=== PATIENT | male | born 1960 | race African-American/Black ===

== ENCOUNTER 2016-11-02 12:34 | Emergency (ER) | payer MEDICARE, MEDICAID ==
[~2016-11-02] VITALS: Ht 170.2 cm; Wt 92.0 kg
[~2016-11-02 12:34] MED LIST: ALBU6.7H INH; AMI2 PO; ATOR-2 PO; CARV12.545 PO; FURO-151 PO; GEMF600T3 PO; POTA-9 PO; SPIR25TA4 PO; WARF7.5T22 PO
[2016-11-02] MEDS ORDERED: BACITRACIN ZINC OINT UDPKT TOP ONE (14:45)
[2016-11-02] MEDS ORDERED: LIDOCAINE HCL 1%/EPI 1:200,000 30 ML VIAL ONE (14:59)
[2016-11-02] MEDS ORDERED: LIDOCAINE HCL/EPINEPHRINE 1%-EPI 1:100,000 50 ML VIAL INFIL ONE (15:00)
[2016-11-02 15:35] LABS: BASOPHILS % 0.7 % (0.0-2.0); EOSINOPHILS % 0.8 % (0.0-5.0); HEMATOCRIT. 42.7 % (42.0-52.0); HEMOGLOBIN. 14.2 g/dL (14.0-18.0); LYMPHOCYTES % 29.6 % (20.0-50.0); MEAN CORPUSCULAR HEMOGLOBIN 30.1 pg (28.0-32.0); MEAN CORPUSCULAR VOLUME 90.4 fL (80.0-94.0); MEAN PLATELET VOLUME 9.6 fl (7.4-10.4); MONOCYTES % 11.1 % (2.0-8.0); NEUTROPHILS % 57.8 % (40.0-76.0); PLATELET 170 x1000/uL (130-400); RED BLOOD CELL COUNT 4.73 mill/uL (4.7-6.1); RED CELL DISTRIBUTION WIDTH 14.1 % (11.6-14.6)
[2016-11-02 15:36] LABS: CHLORIDE 106 mEq/L (98-107)
[2016-11-02 15:41] LABS: CARBON DIOXIDE 27 mEq/L (21-32); INR 1.4; PROTHROMBIN TIME 15.1 sec (9.4-11.6)
[2016-11-02] MEDS ORDERED: KETOROLAC 60MG/2ML VIAL IM ONE (16:00)
[2016-11-02 16:02] VITALS: BP 107/73
== END 2016-11-02 16:11 | disposition home or self-care (01) ==
LOC: ER 12:34
DX: S61.411A Laceration without foreign body of right hand, initial encounter (principal); E78.00 Pure hypercholesterolemia, unspecified; I50.9 Heart failure, unspecified; Z95.1 Presence of aortocoronary bypass graft; Z79.01 Long term (current) use of anticoagulants; W26.8XXA Contact with other sharp object(s), not elsewhere classified, initial encounter; Y93.89 Activity, other specified; Y92.017 Garden or yard in single-family (private) house as the place of occurrence of the external cause
CPT/HCPCS: 12002; 36415; 80053; 85025; 85610; 96372; 99284; J1885; J3490; A4565

== ENCOUNTER 2017-03-01 20:30 | Inpatient (IN) | payer MEDICARE, MEDICAID ==
[~2017-03-01] VITALS: Ht 175.3 cm; Wt 109.8 kg
[~2017-03-01 20:30] MED LIST changes: +ASPI-1159 PO; +CARI350T PO; +EVOL420W SQ; +HYDR-523 PO; +SACU1TAB7 PO
[2017-03-01] MEDS ORDERED: IPRATROPIUM BROMIDE (0.02%) 0.5MG/2.5ML NEB HHN STA (22:24)
[2017-03-01] MEDS ORDERED: ALBUTEROL (0.083%) 2.5MG/3ML NEB HHN STA (22:24)
[2017-03-01] MEDS ORDERED: PREDNISONE 20MG TABLET PO STA (22:24)
[2017-03-01] MEDS ORDERED: AZITHROMYCIN 500 MG in DEXT 5% WATER 250 ML IV SCH (22:45)
[2017-03-01] MEDS ORDERED: CEFTRIAXONE 2 G PREMIX 50 ML IV ONE (22:45)
[2017-03-01 23:03] LABS: BASOPHILS % 0.8 % (0.0-2.0); EOSINOPHILS % 1.9 % (0.0-5.0); HEMATOCRIT. 38.7 % (42.0-52.0); HEMOGLOBIN. 13.1 g/dL (14.0-18.0); LYMPHOCYTES % 40.5 % (20.0-50.0); MEAN CORPUSCULAR HEMOGLOBIN 30.5 pg (28.0-32.0); MEAN CORPUSCULAR VOLUME 89.7 fL (80.0-94.0); MEAN PLATELET VOLUME 8.7 fl (7.4-10.4); MONOCYTES % 12.2 % (2.0-8.0); NEUTROPHILS % 44.6 % (40.0-76.0); PLATELET 172 x1000/uL (130-400); RED BLOOD CELL COUNT 4.31 mill/uL (4.7-6.1); RED CELL DISTRIBUTION WIDTH 13.7 % (11.6-14.6)
[2017-03-01 23:07] LABS: CHLORIDE 106 mEq/L (98-107)
[2017-03-01 23:11] LABS: INR 1.1; PROTHROMBIN TIME 11.7 sec (9.4-11.6)
[2017-03-01 23:13] LABS: CARBON DIOXIDE 28 mEq/L (21-32)
[2017-03-02] VITALS (8 sets, daily range): BP systolic 106–135; BP diastolic 46–88
[2017-03-02] MEDS ORDERED: CLOP75TA33 PO (02:20)
[2017-03-02] MEDS ORDERED: ATOR20TA65 PO (02:20)
[2017-03-02] MEDS ORDERED: ACETAMINOPHEN 325MG TABLET PO PRN (03:45)
[2017-03-02] MEDS ORDERED: TEMAZEPAM 15MG CAPSULE PO PRN (03:45)
[2017-03-02] MEDS ORDERED: IPRATROPIUM/ALBUTEROL 0.5-3(2.5)MG/3ML NEB HHN PRN (03:45)
[2017-03-02] MEDS ORDERED: CLONIDINE 0.1MG TABLET PO PRN (03:45)
[2017-03-02] MEDS ORDERED: LEVOFLOXACIN 500MG PREMIX 100 ML IV SCH (06:00)
[2017-03-02 07:12] LABS: PROSTRATE SPECIFIC AG TOTAL 0.44 ng/mL (0.0-4.0); TRIOIODOTHYRONINE TOTAL 0.73 ng/ml (0.60-1.81)
[2017-03-02 07:17] LABS: BASOPHILS % 0.4 % (0.0-2.0); EOSINOPHILS % 0.2 % (0.0-5.0); HEMATOCRIT. 39.2 % (42.0-52.0); LYMPHOCYTES % 16.4 % (20.0-50.0); MEAN CORPUSCULAR VOLUME 90.2 fL (80.0-94.0); MEAN PLATELET VOLUME 9.8 fl (7.4-10.4); MONOCYTES % 2.8 % (2.0-8.0); NEUTROPHILS % 80.2 % (40.0-76.0); PLATELET 176 x1000/uL (130-400); RED BLOOD CELL COUNT 4.35 mill/uL (4.7-6.1); RED CELL DISTRIBUTION WIDTH 13.9 % (11.6-14.6)
[2017-03-02] MEDS: IPRATROPIUM/ALBUTEROL 0.5-3(2.5)MG/3ML NEB HHN SCH ×2 (07:54→15:33)
[2017-03-02 08:35] LABS: CLARITY URINE CLEAR (CLEAR); COLOR URINE YELLOW (YELLOW); KETONES URINE NEGATIVE (NEGATIVE); LEUKOCYTE ESTERASE URINE NEGATIVE (NEGATIVE); NITRITE URINE NEGATIVE (NEGATIVE); OCCULT BLOOD URINE NEGATIVE (NEGATIVE); PH URINE 7.5 (4.5-8.0); PROTEIN URINE NEGATIVE (NEGATIVE); SPECIFIC GRAVITY URINE 1.023 (1.005-1.030); UROBILINOGEN URINE 0.2 E.U./dL (0.2-1.0)
[2017-03-02 08:45] LABS: CARBON DIOXIDE 24 mEq/L (21-32); CHLORIDE 106 mEq/L (98-107); CREATINE KINASE 125 IU/L (39-308); CREATINE KINASE MB FRACTION 1.5 ng/mL (0.5-3.6); HDL CHOLESTEROL 35 mg/dL (40-59); LDL CHOLESTEROL 176 mg/dL (5-100); TROPONIN I < 0.02 ng/mL (0.00-0.04)
[2017-03-02] MEDS ORDERED: [UNRECOGNIZED DRUG - OTHER] PO SCH (09:00)
[2017-03-02] MEDS ORDERED: VALSARTAN PO SCH (09:00)
[2017-03-02] MEDS ORDERED: ASPIRIN 81MG EC TABLET PO SCH (09:00)
[2017-03-02] MEDS ORDERED: SACUBITRIL PO SCH (09:00)
[2017-03-02] MEDS: LEVOFLOXACIN 500MG PREMIX 100 ML IV SCH (10:06)
[2017-03-02] MEDS: CARISOPRODOL 350 MG TABLET PO SCH (10:07)
[2017-03-02] MEDS: FUROSEMIDE 40MG TABLET PO SCH ×2 (10:07→21:12)
[2017-03-02] MEDS: DOCUSATE SODIUM 100MG CAPSULE PO SCH ×2 (10:07→16:46)
[2017-03-02] MEDS: PROMETHAZINE/DEXTROMETHORPHAN 6.25-15MG/5ML BOTTLE 120ML PO PRN ×2 (12:33→21:16)
[2017-03-02 13:55] LABS: BG BASE EXCESS 0.4 mmol/L (-2.0-2.0); BG CARBOXYHEMOGLOBIN 0.4 % (0.5-1.5); BG DEOXYHEMOGLOBIN 3.7 % (0.0-5.0); BG HCO3 ACT 24.9 mmol/L (22.0-26.0); BG METHEMOGLOBIN 0.3 % (0.0-1.5); BG OXYGEN SATURATION 96.3 % (92.0-98.5); BG OXYHEMOGLOBIN 95.6 % (94.0-97.0); BG PCO2 39.5 mmHg (35.0-45.0); BG PH 7.417 (7.350-7.450); BG PO2 81.5 mmHg (75.0-100.0); BG SAMPLE SITE RIGHT RADIAL; BG TOTAL HEMOGLOBIN 13.7 g/dL (12.0-18.0); BG VENT MODE ROOM AIR
[2017-03-02] MEDS: ATORVASTATIN CALCIUM 40MG TABLET PO SCH (21:12)
[2017-03-02 22:03] LABS: *AMPHETAMINES SCREEN URINE NEGATIVE (NEGATIVE); *BENZODIAZEPINES SCREEN URINE NEGATIVE (NEGATIVE); *COCAINE SCREEN URINE NEGATIVE (NEGATIVE); CANNABINOID URINE SCREEN PRESUMTIVE POSITIVE (NEGATIVE); METHADONE URINE SCREEN NEGATIVE (NEGATIVE); OPIATES URINE SCREEN PRESUMTIVE POSITIVE (NEGATIVE); PHENCYCLIDINE URINE SCREEN NEGATIVE (NEGATIVE)
[2017-03-02 22:04] LABS: *BARBITURATES SCREEN URINE NEGATIVE (NEGATIVE)
[2017-03-03] MEDS ORDERED: AZITHROMYCIN 500 MG in DEXT 5% WATER 250 ML IV SCH ×2
[2017-03-03] MEDS ORDERED: CEFTRIAXONE 1,000 MG in SODIUM CHLORIDE 0.9% 50 ML IV SCH ×2
[2017-03-03] MEDS: IPRATROPIUM/ALBUTEROL 0.5-3(2.5)MG/3ML NEB HHN SCH ×3 (00:08→16:28)
[2017-03-03 04:00] VITALS: BP 106/81
[2017-03-03 06:24] LABS: BASOPHILS % 0.5 % (0.0-2.0); EOSINOPHILS % 0.8 % (0.0-5.0); HEMATOCRIT. 38.7 % (42.0-52.0); HEMOGLOBIN. 12.8 g/dL (14.0-18.0); LYMPHOCYTES % 26.9 % (20.0-50.0); MEAN CORPUSCULAR VOLUME 90.3 fL (80.0-94.0); MEAN PLATELET VOLUME 9.6 fl (7.4-10.4); NEUTROPHILS % 60.8 % (40.0-76.0); PLATELET 179 x1000/uL (130-400); RED BLOOD CELL COUNT 4.28 mill/uL (4.7-6.1); RED CELL DISTRIBUTION WIDTH 14.1 % (11.6-14.6)
[2017-03-03 08:00] VITALS: BP 116/75
[2017-03-03 09:12] LABS: CARBON DIOXIDE 26 mEq/L (21-32); CHLORIDE 103 mEq/L (98-107); TROPONIN I < 0.02 ng/mL (0.00-0.04)
[2017-03-03] MEDS: CARISOPRODOL 350 MG TABLET PO SCH (10:56)
[2017-03-03] MEDS: PROMETHAZINE/DEXTROMETHORPHAN 6.25-15MG/5ML BOTTLE 120ML PO PRN ×2 (10:56→20:38)
[2017-03-03] MEDS: FUROSEMIDE 40MG TABLET PO SCH ×2 (10:56→18:14)
[2017-03-03] MEDS: DOCUSATE SODIUM 100MG CAPSULE PO SCH ×2 (10:56→16:49)
[2017-03-03] MEDS: LEVOFLOXACIN 500MG PREMIX 100 ML IV SCH (10:57)
[2017-03-03 12:00] VITALS: BP 132/83
[2017-03-03 16:00] VITALS: BP 111/74
[2017-03-03 20:00] VITALS: BP 104/68
[2017-03-03] MEDS: ATORVASTATIN CALCIUM 40MG TABLET PO SCH (20:37)
[2017-03-04] VITALS: BP 132/78
[2017-03-04] MEDS ORDERED: CEFTRIAXONE 1 G PREMIX 50 ML IV SCH
[2017-03-04] MEDS: IPRATROPIUM/ALBUTEROL 0.5-3(2.5)MG/3ML NEB HHN SCH (00:03)
[2017-03-04 04:00] VITALS: BP 112/65
[2017-03-04 06:10] LABS: CARBON DIOXIDE 30 mEq/L (21-32); CHLORIDE 103 mEq/L (98-107)
[2017-03-04 06:14] LABS: BASOPHILS % 0.6 % (0.0-2.0); EOSINOPHILS % 2.2 % (0.0-5.0); HEMATOCRIT. 39.7 % (42.0-52.0); HEMOGLOBIN. 13.2 g/dL (14.0-18.0); LYMPHOCYTES % 30.9 % (20.0-50.0); MEAN CORPUSCULAR HEMOGLOBIN 29.9 pg (28.0-32.0); MEAN CORPUSCULAR VOLUME 89.9 fL (80.0-94.0); MEAN PLATELET VOLUME 9.4 fl (7.4-10.4); MONOCYTES % 12.6 % (2.0-8.0); NEUTROPHILS % 53.7 % (40.0-76.0); PLATELET 193 x1000/uL (130-400); RED BLOOD CELL COUNT 4.42 mill/uL (4.7-6.1); RED CELL DISTRIBUTION WIDTH 14.2 % (11.6-14.6)
[2017-03-04] MEDS: FUROSEMIDE 40MG TABLET PO SCH (06:52)
[2017-03-04 08:00] VITALS: BP 123/93
[2017-03-04] MEDS: DOCUSATE SODIUM 100MG CAPSULE PO SCH (08:42)
[2017-03-04] MEDS: CARISOPRODOL 350 MG TABLET PO SCH (08:43)
[2017-03-04] MEDS: LEVOFLOXACIN 500MG PREMIX 100 ML IV SCH (08:43)
[2017-03-04] MEDS: PROMETHAZINE/DEXTROMETHORPHAN 6.25-15MG/5ML BOTTLE 120ML PO PRN (10:33)
[2017-03-04 12:00] VITALS: BP 121/85
[2017-03-04 13:11] VITALS: BP 121/85
== END 2017-03-04 14:04 | disposition home or self-care (01) | DRG 291 ==
LOC: ER 22:41 → OBSVTOIN 23:53 → 5WST 23:53 → INTOOBSV 23:53 → ENRESERV 03-02 00:01
PROVIDERS: ADMIT Internal Medicine Pulmonary Disease; ATTEND Internal Medicine Pulmonary Disease
DX: I11.0 Hypertensive heart disease with heart failure (principal); J18.9 Pneumonia, unspecified organism; J44.0 Chronic obstructive pulmonary disease with (acute) lower respiratory infection; R04.2 Hemoptysis; Z95.1 Presence of aortocoronary bypass graft; J44.1 Chronic obstructive pulmonary disease with (acute) exacerbation; I48.91 Unspecified atrial fibrillation; I50.9 Heart failure, unspecified; Z87.891 Personal history of nicotine dependence; E78.5 Hyperlipidemia, unspecified; I25.10 Atherosclerotic heart disease of native coronary artery without angina pectoris; I44.7 Left bundle-branch block, unspecified; J20.8 Acute bronchitis due to other specified organisms; I25.5 Ischemic cardiomyopathy; Z79.82 Long term (current) use of aspirin; I25.2 Old myocardial infarction; Z82.49 Family history of ischemic heart disease and other diseases of the circulatory system; Z95.5 Presence of coronary angioplasty implant and graft; Z95.810 Presence of automatic (implantable) cardiac defibrillator; Z79.899 Other long term (current) drug therapy; T45.525A Adverse effect of antithrombotic drugs, initial encounter; T39.015A Adverse effect of aspirin, initial encounter; Y92.9 Unspecified place or not applicable
CPT/HCPCS: 36415; 36600; 71045; 71046; 80048; 80053; 80061; 80076; 80305; 81003; 82375; 82550; 82553; 82805; 83605; 83880; 84153; 84443; 84480; 84484; 85025; 85610; 86850; 86900; 87040; 87070; 87086; 93005; 94640; 99285; G0378; J0456; J0696; J1956; J7040; J7050; J7060; J7512; J7611; J7620

== ENCOUNTER 2017-11-01 06:12 | Inpatient (IN) | payer MEDICARE, MEDICAID ==
[~2017-11-01] VITALS: Ht 175.3 cm; Wt 116.8 kg
[~2017-11-01 06:12] MED LIST changes: -ASPI-1159 PO; -ATOR-2 PO; +ATOR20TA65 PO; -CARI350T PO; -CARV12.545 PO; -GEMF600T3 PO; +GEMF600T4 PO; -HYDR-523 PO; -POTA-9 PO; +S350 PO; -SPIR25TA4 PO; -WARF7.5T22 PO
[2017-11-01] MEDS ORDERED: BENZ-16 PO (08:39)
[2017-11-01] MEDS ORDERED: ALBU18HF2 IH (08:39)
[2017-11-01] MEDS ORDERED: COR12 PO (08:39)
[2017-11-01] MEDS ORDERED: CLOP75TA16 PO (08:39)
[2017-11-01] MEDS ORDERED: ASPI-1159 PO (08:39)
[2017-11-01 08:53] LABS: HEMATOCRIT. 41.4 % (42.0-52.0); MEAN CORPUSCULAR HEMOGLOBIN 30.6 pg (28.0-32.0); MEAN CORPUSCULAR VOLUME 90.7 fL (80.0-94.0); MEAN PLATELET VOLUME 9.9 fl (7.4-10.4); PLATELET 162 x1000/uL (130-400); RED BLOOD CELL COUNT 4.57 mill/uL (4.7-6.1)
[2017-11-01 09:00] LABS: CHLORIDE 102 mEq/L (98-107)
[2017-11-01 09:09] LABS: INR 1.1; PARTIAL THROMBOPLASTIN TIME 29.5 sec (23.4-31.0); PROTHROMBIN TIME 10.8 sec (9.1-11.1)
[2017-11-01] MEDS ORDERED: GENTAMICIN SULF 40MG/ML 2ML VIAL ONE (11:09)
[2017-11-01] MEDS ORDERED: GENTAMICIN/NS IRRIGATION 500 ML IR ONE (11:09)
[2017-11-01] MEDS ORDERED: CEFAZOLIN 1000MG PREMIX 100 ML IV ONE (11:09)
[2017-11-01] MEDS ORDERED: IOHEXOL-300 100 ML BOTTLE ONE (11:09)
[2017-11-01 11:40] LABS: PLATELET ESTIMATE NORMAL
[2017-11-01] MEDS ORDERED: LIDOCAINE HCL 1% 10 MG/ML 10ML VIAL ONE ×2 (12:29→12:39)
[2017-11-01 14:37] LABS: HEPATITIS B SURFACE ANTIGEN NEGATIVE
[2017-11-01] MEDS ORDERED: ETOMIDATE 2MG/ML 10ML VIAL IV ONE (15:15)
[2017-11-01] MEDS ORDERED: ALBUTEROL 6.7GM HFA INHALER INH PRN (15:30)
[2017-11-01] MEDS: FENTANYL CITRATE/PF 50MCG/ML 2ML VIAL IV PRN ×2 (16:48→16:59)
[2017-11-01] MEDS: ONDANSETRON HCL 4MG/2ML INJ IV PRN ×2 (16:48→18:20)
[2017-11-01] MEDS ORDERED: ATORVASTATIN CALCIUM 20MG TABLET PO SCH (17:00)
[2017-11-01] MEDS ORDERED: ALBUTEROL (0.083%) 2.5MG/3ML NEB HHN PRN (17:00)
[2017-11-01] MEDS ORDERED: ALBUTEROL 6.7GM HFA INHALER INH SCH (17:00)
[2017-11-01 17:58] VITALS: BP 127/77
[2017-11-01 18:08] VITALS: BP 127/77
[2017-11-01] MEDS ORDERED: PNEUMOCOCCAL 23-VAL P-SAC VAC 0.5 ML IM ONE (19:30)
[2017-11-01] MEDS: HYDROCODONE/ACETAMINOPHEN 5/325MG TABLET PO PRN (19:38)
[2017-11-01 20:00] VITALS: BP 112/84
[2017-11-01] MEDS: ATORVASTATIN CALCIUM 20MG TABLET PO SCH (21:01)
[2017-11-01] MEDS: FUROSEMIDE 40MG TABLET PO SCH (21:01)
[2017-11-01 22:00] VITALS: BP 134/78
[2017-11-02] VITALS (15 sets, daily range): BP systolic 94–121; BP diastolic 55–74
[2017-11-02] MEDS: ALBUTEROL (0.083%) 2.5MG/3ML NEB HHN SCH ×4 (02:36→20:00)
[2017-11-02] MEDS: HYDROCODONE/ACETAMINOPHEN 5/325MG TABLET PO PRN ×2 (04:04→18:58)
[2017-11-02] MEDS: FUROSEMIDE 40MG TABLET PO SCH ×2 (06:38→17:00)
[2017-11-02 06:58] LABS: BASOPHILS % 0.4 % (0.0-2.0); EOSINOPHILS % 0.9 % (0.0-5.0); HEMATOCRIT. 41.4 % (42.0-52.0); HEMOGLOBIN. 13.7 g/dL (14.0-18.0); LYMPHOCYTES % 16.9 % (20.0-50.0); MEAN CORPUSCULAR HEMOGLOBIN 30.4 pg (28.0-32.0); MEAN CORPUSCULAR VOLUME 91.6 fL (80.0-94.0); MEAN PLATELET VOLUME 10.1 fl (7.4-10.4); MONOCYTES % 12.5 % (2.0-8.0); NEUTROPHILS % 69.3 % (40.0-76.0); PLATELET 157 x1000/uL (130-400); RED BLOOD CELL COUNT 4.52 mill/uL (4.7-6.1); RED CELL DISTRIBUTION WIDTH 14.2 % (11.6-14.6)
[2017-11-02 07:13] LABS: CHLORIDE 100 mEq/L (98-107)
[2017-11-02] MEDS: ASPIRIN 81MG TABLET PO SCH (09:41)
[2017-11-02] MEDS: CARISOPRODOL 350 MG TABLET PO SCH (09:42)
[2017-11-02] MEDS: CARVEDILOL 12.5MG TABLET PO SCH (09:43)
[2017-11-02] MEDS: CLOPIDOGREL 75MG TABLET PO SCH (09:44)
[2017-11-02] MEDS: AMIODARONE HCL 200 MG TABLET PO SCH (09:45)
[2017-11-02] MEDS: ONDANSETRON HCL 4MG/2ML INJ IV PRN (18:55)
[2017-11-02] MEDS: ATORVASTATIN CALCIUM 20MG TABLET PO SCH (20:45)
[2017-11-03] VITALS (15 sets, daily range): BP systolic 95–124; BP diastolic 49–90
[2017-11-03] MEDS: ALBUTEROL (0.083%) 2.5MG/3ML NEB HHN SCH ×3 (01:28→20:52)
[2017-11-03] MEDS: ONDANSETRON HCL 4MG/2ML INJ IV PRN (08:30)
[2017-11-03] MEDS: HYDROCODONE/ACETAMINOPHEN 5/325MG TABLET PO PRN ×2 (08:32→20:18)
[2017-11-03] MEDS: AMIODARONE HCL 200 MG TABLET PO SCH (08:33)
[2017-11-03] MEDS: CLOPIDOGREL 75MG TABLET PO SCH (08:33)
[2017-11-03] MEDS: CARVEDILOL 12.5MG TABLET PO SCH (08:33)
[2017-11-03] MEDS: ASPIRIN 81MG TABLET PO SCH (08:33)
[2017-11-03] MEDS: CARISOPRODOL 350 MG TABLET PO SCH (08:33)
[2017-11-03] MEDS: FUROSEMIDE 40MG TABLET PO SCH ×2 (08:33→17:26)
[2017-11-03] MEDS: ATORVASTATIN CALCIUM 20MG TABLET PO SCH (20:19)
[2017-11-03] MEDS ORDERED: ACETAMINOPHEN 325MG TABLET PO PRN (21:00)
[2017-11-03] MEDS: CEPHALEXIN 250MG CAPSULE PO SCH (21:30)
[2017-11-03 21:51] LABS: BASOPHILS % 0.5 % (0.0-2.0); EOSINOPHILS % 0.6 % (0.0-5.0); HEMATOCRIT. 40.1 % (42.0-52.0); HEMOGLOBIN. 13.3 g/dL (14.0-18.0); LYMPHOCYTES % 14.8 % (20.0-50.0); MEAN CORPUSCULAR HEMOGLOBIN 30.3 pg (28.0-32.0); MEAN CORPUSCULAR VOLUME 91.3 fL (80.0-94.0); MEAN PLATELET VOLUME 9.8 fl (7.4-10.4); MONOCYTES % 13.5 % (2.0-8.0); NEUTROPHILS % 70.6 % (40.0-76.0); PLATELET 142 x1000/uL (130-400); RED BLOOD CELL COUNT 4.39 mill/uL (4.7-6.1); RED CELL DISTRIBUTION WIDTH 13.7 % (11.6-14.6)
[2017-11-04] VITALS (9 sets, daily range): BP systolic 95–126; BP diastolic 53–77
[2017-11-04] MEDS: ALBUTEROL (0.083%) 2.5MG/3ML NEB HHN SCH ×3 (02:36→13:53)
[2017-11-04] MEDS: FUROSEMIDE 40MG TABLET PO SCH (06:45)
[2017-11-04] MEDS: CEPHALEXIN 250MG CAPSULE PO SCH ×2 (06:46)
[2017-11-04] MEDS: CARISOPRODOL 350 MG TABLET PO SCH (07:41)
[2017-11-04] MEDS: ASPIRIN 81MG TABLET PO SCH (07:42)
[2017-11-04] MEDS: CLOPIDOGREL 75MG TABLET PO SCH (07:42)
[2017-11-04] MEDS: AMIODARONE HCL 200 MG TABLET PO SCH (07:42)
[2017-11-04] MEDS: CARVEDILOL 12.5MG TABLET PO SCH (07:45)
[2017-11-04] MEDS: HYDROCODONE/ACETAMINOPHEN 5/325MG TABLET PO PRN (10:15)
== END 2017-11-04 16:10 | disposition home or self-care (01) | DRG 223 ==
LOC: CCL 06:12 → 3WST 06:13
PROVIDERS: ADMIT Internal Medicine Clinical Cardiac Electrophysiology; ATTEND Internal Medicine Clinical Cardiac Electrophysiology
PROC: 0JH609Z Insertion of Cardiac Resynchronization Defibrillator Pulse Generator into Chest Subcutaneous Tissue and Fascia, Open Approach (ICD-10-PCS; 2017-11-01)
PROC: 02HL3KZ Insertion of Defibrillator Lead into Left Ventricle, Percutaneous Approach (ICD-10-PCS; 2017-11-01)
PROC: 4A023N6 Measurement of Cardiac Sampling and Pressure, Right Heart, Percutaneous Approach (ICD-10-PCS; 2017-11-01)
PROC: 02H43KZ Insertion of Defibrillator Lead into Coronary Vein, Percutaneous Approach (ICD-10-PCS; 2017-11-01)
PROC: B5171ZZ Fluoroscopy of Left Subclavian Vein using Low Osmolar Contrast (ICD-10-PCS; 2017-11-01)
PROC: 0JPT0PZ Removal of Cardiac Rhythm Related Device from Trunk Subcutaneous Tissue and Fascia, Open Approach (ICD-10-PCS; principal; 2017-11-01 15:00)
DX: I11.0 Hypertensive heart disease with heart failure (principal); I25.5 Ischemic cardiomyopathy; I50.23 Acute on chronic systolic (congestive) heart failure; I25.10 Atherosclerotic heart disease of native coronary artery without angina pectoris; E78.5 Hyperlipidemia, unspecified; J44.9 Chronic obstructive pulmonary disease, unspecified; E66.9 Obesity, unspecified; I34.0 Nonrheumatic mitral (valve) insufficiency; I25.2 Old myocardial infarction; Z95.1 Presence of aortocoronary bypass graft; Z95.5 Presence of coronary angioplasty implant and graft; Z79.899 Other long term (current) drug therapy; Z68.38 Body mass index [BMI] 38.0-38.9, adult
CPT/HCPCS: 33225; 33264; 36415; 71045; 75820; 80048; 85025; 85610; 85730; 93005; 93451; 93641; 94640; A4565; C1758; C1769; C1882; C1887; C1893; C1900; J0690; J1580; J1644; J2405; J3010; J3490; J7040; J7611; Q9967

== ENCOUNTER 2018-01-28 09:05 | Inpatient (IN) | payer MEDICARE, MEDICAID ==
[~2018-01-28] VITALS: Ht 205.7 cm; Wt 117.9 kg
[~2018-01-28 09:05] MED LIST changes: +ALBU18HF2 IH; +ASPI-1159 PO; +CLOP75TA16 PO; +COR12 PO; -EVOL420W SQ; -GEMF600T4 PO; -SACU1TAB7 PO
[2018-01-28] MEDS ORDERED: ALBUTEROL (0.083%) 2.5MG/3ML NEB HHN STA (09:22)
[2018-01-28] MEDS ORDERED: FUROSEMIDE 40MG/4ML VIAL IV ONE (09:30)
[2018-01-28] MEDS ORDERED: ASPIRIN 81MG TABLET PO ONE (09:30)
[2018-01-28 09:41] LABS: HEMATOCRIT. 40.6 % (42.0-52.0); HEMOGLOBIN. 13.6 g/dL (14.0-18.0); MEAN CORPUSCULAR HEMOGLOBIN 29.8 pg (28.0-32.0); MEAN CORPUSCULAR VOLUME 88.9 fL (80.0-94.0); PLATELET 154 x1000/uL (130-400); RED BLOOD CELL COUNT 4.57 mill/uL (4.7-6.1); RED CELL DISTRIBUTION WIDTH 14.1 % (11.6-14.6)
[2018-01-28 09:46] LABS: CHLORIDE 100 mEq/L (98-107)
[2018-01-28 09:48] LABS: INR 1.1; PARTIAL THROMBOPLASTIN TIME 29.2 sec (23.4-31.0); PROTHROMBIN TIME 11.4 sec (9.1-11.1)
[2018-01-28 10:04] LABS: PLATELET ESTIMATE NORMAL
[2018-01-28 14:20] VITALS: BP 112/65
[2018-01-28] MEDS ORDERED: BENZONATATE 100MG CAPSULE PO PRN (14:45)
[2018-01-28] MEDS ORDERED: PANTOPRAZOLE 40MG DR TABLET PO STA (15:05)
[2018-01-28] MEDS ORDERED: FUROSEMIDE 100MG/10ML VIAL IVP STA (15:08)
[2018-01-28 15:19] LABS: METHADONE URINE SCREEN NEGATIVE (NEGATIVE); OPIATES URINE SCREEN NEGATIVE (NEGATIVE)
[2018-01-28 15:20] LABS: *AMPHETAMINES SCREEN URINE NEGATIVE (NEGATIVE); *BARBITURATES SCREEN URINE NEGATIVE (NEGATIVE); *BENZODIAZEPINES SCREEN URINE NEGATIVE (NEGATIVE); *COCAINE SCREEN URINE NEGATIVE (NEGATIVE); CANNABINOID URINE SCREEN PRESUMTIVE POSITIVE (NEGATIVE); PHENCYCLIDINE URINE SCREEN NEGATIVE (NEGATIVE)
[2018-01-28] MEDS ORDERED: PROMETHAZINE/DEXTROMETHORPHAN 6.25-15MG/5ML BOTTLE 120ML PO PRN (16:00)
[2018-01-28 17:16] VITALS: BP 109/59
[2018-01-28] MEDS: ENOXAPARIN 40MG/0.4ML SYR SUBCUT SCH (17:28)
[2018-01-28 20:00] VITALS: BP 112/68
[2018-01-28] MEDS: AMOXICILLIN/POTASSIUM CLAVULANATE 875/125MG TAB PO SCH (20:29)
[2018-01-28] MEDS: ATORVASTATIN CALCIUM 40MG TABLET PO SCH (20:29)
[2018-01-28] MEDS: CARVEDILOL 12.5MG TABLET PO SCH (20:30)
[2018-01-28] MEDS: IPRATROPIUM/ALBUTEROL 0.5-3(2.5)MG/3ML NEB HHN SCH (21:52)
[2018-01-29] VITALS (7 sets, daily range): BP systolic 98–124; BP diastolic 58–80
[2018-01-29] MEDS: IPRATROPIUM/ALBUTEROL 0.5-3(2.5)MG/3ML NEB HHN SCH ×3 (00:11→20:10)
[2018-01-29] MEDS: AMOXICILLIN/POTASSIUM CLAVULANATE 875/125MG TAB PO SCH ×2 (09:14→21:00)
[2018-01-29] MEDS: AMIODARONE HCL 200 MG TABLET PO SCH (09:14)
[2018-01-29] MEDS: PANTOPRAZOLE 40MG DR TABLET PO SCH (09:15)
[2018-01-29] MEDS: ASPIRIN 81MG EC TABLET PO SCH (09:15)
[2018-01-29] MEDS: CARVEDILOL 12.5MG TABLET PO SCH ×2 (09:15→20:50)
[2018-01-29] MEDS: CLOPIDOGREL 75MG TABLET PO SCH (09:15)
[2018-01-29 09:16] LABS: HEMATOCRIT. 42.1 % (42.0-52.0); HEMOGLOBIN. 14.1 g/dL (14.0-18.0); MEAN CORPUSCULAR HEMOGLOBIN 29.7 pg (28.0-32.0); MEAN CORPUSCULAR VOLUME 88.8 fL (80.0-94.0); MEAN PLATELET VOLUME 9.6 fl (7.4-10.4); PLATELET 175 x1000/uL (130-400); RED BLOOD CELL COUNT 4.74 mill/uL (4.7-6.1)
[2018-01-29 09:32] LABS: CHLORIDE 99 mEq/L (98-107)
[2018-01-29 09:41] LABS: PHOSPHORUS 2.8 mg/dL (2.5-4.9)
[2018-01-29] MEDS ORDERED: ACETAMINOPHEN 650MG/20.3ML UDC PO PRN (10:15)
[2018-01-29 11:52] LABS: PLATELET ESTIMATE NORMAL
[2018-01-29] MEDS: POTASSIUM CHLORIDE 20MEQ TABLET SR PO SCH (13:24)
[2018-01-29] MEDS: FUROSEMIDE 40MG/4ML VIAL IVP SCH (13:25)
[2018-01-29] MEDS: ENOXAPARIN 40MG/0.4ML SYR SUBCUT SCH (14:59)
[2018-01-29] MEDS: ATORVASTATIN CALCIUM 40MG TABLET PO SCH (21:00)
[2018-01-30] VITALS: BP 112/82
[2018-01-30] MEDS: IPRATROPIUM/ALBUTEROL 0.5-3(2.5)MG/3ML NEB HHN SCH ×5 (00:16→15:53)
[2018-01-30 04:00] VITALS: BP 105/62
[2018-01-30 08:00] VITALS: BP 120/82
[2018-01-30] MEDS: POTASSIUM CHLORIDE 20MEQ TABLET SR PO SCH (08:32)
[2018-01-30] MEDS: CLOPIDOGREL 75MG TABLET PO SCH (08:32)
[2018-01-30] MEDS: AMOXICILLIN/POTASSIUM CLAVULANATE 875/125MG TAB PO SCH (08:32)
[2018-01-30] MEDS: PANTOPRAZOLE 40MG DR TABLET PO SCH (08:33)
[2018-01-30] MEDS: CARVEDILOL 12.5MG TABLET PO SCH (08:33)
[2018-01-30] MEDS: ASPIRIN 81MG EC TABLET PO SCH (08:34)
[2018-01-30] MEDS: FUROSEMIDE 40MG/4ML VIAL IVP SCH (08:34)
[2018-01-30] MEDS: AMIODARONE HCL 200 MG TABLET PO SCH (08:50)
[2018-01-30 12:00] VITALS: BP 92/62
[2018-01-30 14:24] VITALS: BP 92/62
[2018-01-31] MEDS ORDERED: FAMOTIDINE 20MG TABLET PO SCH (09:00)
== END 2018-01-30 15:46 | disposition home or self-care (01) | DRG 293 ==
LOC: EDBEDREQTM 10:50 → EDBEDREQ 10:50 → ER 11:39 → ENRESERV 12:53 → 7WST 14:07
PROVIDERS: ADMIT Internal Medicine; ATTEND Internal Medicine
DX: I11.0 Hypertensive heart disease with heart failure (principal); K21.9 Gastro-esophageal reflux disease without esophagitis; I34.0 Nonrheumatic mitral (valve) insufficiency; J44.9 Chronic obstructive pulmonary disease, unspecified; E66.01 Morbid (severe) obesity due to excess calories; I50.9 Heart failure, unspecified; I25.10 Atherosclerotic heart disease of native coronary artery without angina pectoris; I25.5 Ischemic cardiomyopathy; E78.5 Hyperlipidemia, unspecified; I25.2 Old myocardial infarction; Z82.49 Family history of ischemic heart disease and other diseases of the circulatory system; Z95.1 Presence of aortocoronary bypass graft; Z95.5 Presence of coronary angioplasty implant and graft; Z95.810 Presence of automatic (implantable) cardiac defibrillator; Z68.27 Body mass index [BMI] 27.0-27.9, adult; Z79.899 Other long term (current) drug therapy; Z79.82 Long term (current) use of aspirin
CPT/HCPCS: 36415; 71045; 80048; 80305; 83735; 83880; 84100; 84484; 85651; 93005; 93970; 94640; 96374; 99291; J1650; J1940; J7611; J7620

== ENCOUNTER 2018-02-28 10:35 | Day surgery (SDC) | payer MEDICARE, MEDICAID ==
[~2018-02-28] VITALS: Ht 172.7 cm; Wt 117.9 kg
[2018-02-28] MEDS ORDERED: LIDOCAINE HCL/PF 1% 10 MG/ML 5ML VIAL ONE ×2 (11:59→13:08)
[2018-02-28 12:56] LABS: BASOPHILS % 0.7 % (0.0-2.0); EOSINOPHILS % 1.3 % (0.0-5.0); HEMATOCRIT. 45.2 % (42.0-52.0); HEMOGLOBIN. 14.8 g/dL (14.0-18.0); LYMPHOCYTES % 37.7 % (20.0-50.0); MEAN CORPUSCULAR VOLUME 88.6 fL (80.0-94.0); MEAN PLATELET VOLUME 9.5 fl (7.4-10.4); MONOCYTES % 11.6 % (2.0-8.0); NEUTROPHILS % 48.7 % (40.0-76.0); PLATELET 184 x1000/uL (130-400); RED CELL DISTRIBUTION WIDTH 14.5 % (11.6-14.6)
[2018-02-28 13:04] LABS: CHLORIDE 107 mEq/L (98-107)
[2018-02-28 13:05] LABS: INR 1.1; PROTHROMBIN TIME 11.3 sec (9.1-11.1)
[2018-02-28] MEDS ORDERED: GLYCOPYRROLATE 0.2 MG/ML 2ML VIAL ONE (13:08)
[2018-02-28] MEDS ORDERED: FENTANYL CITRATE/PF 50MCG/ML 2ML VIAL ONE ×3 (13:08→14:16)
[2018-02-28] MEDS ORDERED: CEFAZOLIN SODIUM 1000MG/VIAL ONE (13:08)
[2018-02-28] MEDS ORDERED: METOCLOPRAMIDE HCL 10MG/2ML VIAL ONE (13:08)
[2018-02-28] MEDS ORDERED: SODIUM CHLORIDE 0.9% 10ML VIAL ONE (13:08)
[2018-02-28] MEDS ORDERED: PROPOFOL 200MG/20ML VIAL IV ONE (13:08)
[2018-02-28] MEDS ORDERED: MIDAZOLAM HCL 2 MG/2 ML VIAL ONE (13:08)
[2018-02-28] MEDS ORDERED: ONDANSETRON HCL 4MG/2ML INJ ONE (13:08)
[2018-02-28] MEDS ORDERED: POTA20TA82 PO (13:08)
[2018-02-28] MEDS ORDERED: NEOSTIGMINE METHYLSULFATE 1MG/ML 10 ML VIAL ONE (13:08)
[2018-02-28] MEDS ORDERED: SUCCINYLCHOLINE CHLORIDE 200MG/10ML IV ONE (13:08)
[2018-02-28] MEDS ORDERED: ROCURONIUM BROMIDE 10MG/ML VIAL 5ML IV ONE (13:08)
[2018-02-28] MEDS ORDERED: BENZ-16 PO (13:11)
[2018-02-28] MEDS ORDERED: HEPARIN SODIUM 1,000 UNIT/1ML VIAL IV ONE (13:20)
[2018-02-28] MEDS ORDERED: DOBUTAMINE 250MG PREMIX 250 ML IV ONE (14:21)
[2018-02-28] MEDS ORDERED: FUROSEMIDE 20MG/2ML VIAL ONE (15:59)
[2018-02-28] MEDS ORDERED: ONDANSETRON HCL 4MG/2ML INJ IV PRN (16:00)
[2018-02-28] MEDS ORDERED: HYDROMORPHONE HCL/PF 2MG/ML CPJ IV PRN (16:00)
[2018-02-28] MEDS ORDERED: MEPERIDINE HCL/PF 25MG/ML CPJ IV PRN (16:00)
[2018-02-28] MEDS ORDERED: SODIUM CHLORIDE 0.9% 1,000 ML IV ONE (16:37)
== END 2018-02-28 18:15 | disposition home or self-care (01) ==
LOC: CCL 10:35
PROVIDERS: ATTEND Internal Medicine Clinical Cardiac Electrophysiology
DX: I47.1 Supraventricular tachycardia (principal); I50.23 Acute on chronic systolic (congestive) heart failure; I25.5 Ischemic cardiomyopathy; J45.909 Unspecified asthma, uncomplicated; E66.01 Morbid (severe) obesity due to excess calories; Z68.37 Body mass index [BMI] 37.0-37.9, adult; Z87.891 Personal history of nicotine dependence; E11.8 Type 2 diabetes mellitus with unspecified complications; I10 Essential (primary) hypertension; N28.9 Disorder of kidney and ureter, unspecified
CPT/HCPCS: 36415; 80048; 85025; 85610; 85730; 92960; 93005; 93609; 93620; 93621; 93623; C1730; C1731; C1893; J0690; J1250; J1644; J1940; J2250; J2405; J2704; J2765; J3010; J3490; 93613; J0330; J2710

== ENCOUNTER 2018-07-02 14:25 | Inpatient (IN) | payer MEDICARE, MEDICAID ==
[~2018-07-02] VITALS: Ht 175.3 cm; Wt 122.9 kg
[~2018-07-02 14:25] MED LIST changes: +BENZ-16 PO; +POTA20TA82 PO
[2018-07-02 15:11] LABS: CHLORIDE 105 mEq/L (98-107)
[2018-07-02 15:13] LABS: INR 1.1; PROTHROMBIN TIME 11.4 sec (9.6-11.0)
[2018-07-02 15:17] LABS: BG BASE EXCESS -4.4 mmol/L (-2.0-2.0); BG BILEVEL POS AIRWAY PRESSURE 15/5; BG CARBOXYHEMOGLOBIN 1.3 % (0.5-1.5); BG DEOXYHEMOGLOBIN 1.3 % (0.0-5.0); BG FRACTION INSPIRED OXYGEN 40; BG HCO3 ACT 19.4 mmol/L (22.0-26.0); BG METHEMOGLOBIN 0.2 % (0.0-1.5); BG OXYGEN SATURATION 98.7 % (92.0-98.5); BG OXYHEMOGLOBIN 97.2 % (94.0-97.0); BG PCO2 32.1 mmHg (35.0-45.0); BG PO2 138.1 mmHg (75.0-100.0); BG SAMPLE SITE RIGHT RADIAL; BG TOTAL HEMOGLOBIN 13.4 g/dL (12.0-18.0); BG VENT MODE MASK - BIPAP
[2018-07-02 15:17] LABS: BASOPHILS % 0.6 % (0.0-2.0); EOSINOPHILS % 0.8 % (0.0-5.0); HEMATOCRIT. 39.3 % (42.0-52.0); HEMOGLOBIN. 13.2 g/dL (14.0-18.0); LYMPHOCYTES % 22.2 % (20.0-50.0); MEAN CORPUSCULAR HEMOGLOBIN 29.9 pg (28.0-32.0); MEAN CORPUSCULAR VOLUME 89.3 fL (80.0-94.0); MEAN PLATELET VOLUME 10.6 fl (7.4-10.4); MONOCYTES % 11.4 % (2.0-8.0); PLATELET 169 x1000/uL (130-400); RED CELL DISTRIBUTION WIDTH 14.8 % (11.6-14.6)
[2018-07-02] MEDS ORDERED: FUROSEMIDE 40MG/4ML VIAL IVP ONE (15:30)
[2018-07-02] MEDS ORDERED: ASPIRIN 81MG TABLET PO ONE (15:30)
[2018-07-02 16:35] VITALS: BP 138/85
[2018-07-02] MEDS ORDERED: ATOR-2 MT (16:44)
[2018-07-02] MEDS ORDERED: SACU1TAB4 MT (16:49)
[2018-07-02] MEDS ORDERED: POTA8CAP10 MT (16:49)
[2018-07-02] MEDS ORDERED: STIOLTO (16:49)
[2018-07-02] MEDS ORDERED: ALBU90AE INH (16:49)
[2018-07-02] MEDS ORDERED: BENZ200C52 PO (16:49)
[2018-07-02 18:11] VITALS: BP 132/92
[2018-07-02] MEDS ORDERED: MAGNESIUM/ALUMINUM HYDROXIDE/SIMETHICONE 30ML UDC PO PRN (18:15)
[2018-07-02] MEDS ORDERED: ACETAMINOPHEN 325MG TABLET PO PRN (18:15)
[2018-07-02] MEDS ORDERED: ONDANSETRON HCL 4MG/2ML INJ IV PRN (18:15)
[2018-07-02] MEDS ORDERED: POTASSIUM CHLORIDE 20MEQ TABLET SR PO SCH (18:30)
[2018-07-02] MEDS: CLOPIDOGREL 75MG TABLET PO SCH (18:47)
[2018-07-02 20:00] VITALS: BP 95/71
[2018-07-02] MEDS: ENOXAPARIN 30MG/0.3ML SYR SUBCUT SCH (21:04)
[2018-07-02] MEDS: ATORVASTATIN CALCIUM 40MG TABLET PO SCH (21:05)
[2018-07-02 21:11] LABS: BASOPHILS % 0.6 % (0.0-2.0); EOSINOPHILS % 0.9 % (0.0-5.0); HEMATOCRIT. 36.6 % (42.0-52.0); HEMOGLOBIN. 12.3 g/dL (14.0-18.0); LYMPHOCYTES % 21.5 % (20.0-50.0); MEAN CORPUSCULAR VOLUME 89.7 fL (80.0-94.0); MEAN PLATELET VOLUME 9.8 fl (7.4-10.4); MONOCYTES % 9.7 % (2.0-8.0); NEUTROPHILS % 67.3 % (40.0-76.0); PLATELET 147 x1000/uL (130-400); RED BLOOD CELL COUNT 4.09 mill/uL (4.7-6.1); RED CELL DISTRIBUTION WIDTH 14.7 % (11.6-14.6)
[2018-07-02 22:00] VITALS: BP 149/104
[2018-07-02] MEDS: IPRATROPIUM/ALBUTEROL 0.5-3(2.5)MG/3ML NEB HHN PRN (22:48)
[2018-07-03] VITALS (13 sets, daily range): BP systolic 64–129; BP diastolic 33–68
[2018-07-03 07:15] LABS: CHLORIDE 104 mEq/L (98-107)
[2018-07-03 07:36] LABS: BASOPHILS % 0.6 % (0.0-2.0); EOSINOPHILS % 1.2 % (0.0-5.0); HEMATOCRIT. 34.5 % (42.0-52.0); HEMOGLOBIN. 11.8 g/dL (14.0-18.0); LYMPHOCYTES % 21.3 % (20.0-50.0); MEAN CORPUSCULAR HEMOGLOBIN 30.5 pg (28.0-32.0); MEAN CORPUSCULAR VOLUME 89.4 fL (80.0-94.0); MEAN PLATELET VOLUME 10.3 fl (7.4-10.4); MONOCYTES % 11.4 % (2.0-8.0); NEUTROPHILS % 65.5 % (40.0-76.0); PLATELET 139 x1000/uL (130-400); RED BLOOD CELL COUNT 3.86 mill/uL (4.7-6.1); RED CELL DISTRIBUTION WIDTH 14.7 % (11.6-14.6)
[2018-07-03] MEDS: CLOPIDOGREL 75MG TABLET PO SCH (08:45)
[2018-07-03] MEDS: FUROSEMIDE 40MG TABLET PO SCH (08:49)
[2018-07-03] MEDS: ASPIRIN 81MG TABLET PO SCH (08:49)
[2018-07-03] MEDS: CARVEDILOL 12.5MG TABLET PO SCH (08:49)
[2018-07-03] MEDS: ENTRESTO PO SCH ×2 (08:50→21:48)
[2018-07-03] MEDS: ENOXAPARIN 30MG/0.3ML SYR SUBCUT SCH ×2 (08:51→21:42)
[2018-07-03] MEDS ORDERED: MEDICATION NOT ON FORMULARY EA (Sacubitril/Valsartan (Entresto 97 mg-103 mg Tablet) 1 TA MT SCH (09:00)
[2018-07-03] MEDS ORDERED: POTASSIUM CHLORIDE 20MEQ TABLET SR PO SCH (13:45)
[2018-07-03] MEDS: ATORVASTATIN CALCIUM 40MG TABLET PO SCH (21:42)
[2018-07-03] MEDS: IPRATROPIUM/ALBUTEROL 0.5-3(2.5)MG/3ML NEB HHN PRN (22:17)
[2018-07-03] MEDS ORDERED: GUAIFENESIN/CODEINE 200-20MG/10ML UDC PO PRN (23:00)
[2018-07-03] MEDS ORDERED: GUAIFENESIN/CODEINE 100-10MG/5ML UDC PO PRN (23:15)
[2018-07-04] VITALS (11 sets, daily range): BP systolic 84–135; BP diastolic 47–100
[2018-07-04] MEDS ORDERED: GUAIFENESIN/CODEINE 200-20MG/10ML UDC PO PRN (05:00)
[2018-07-04 06:26] LABS: BASOPHILS % 0.7 % (0.0-2.0); EOSINOPHILS % 1.8 % (0.0-5.0); HEMATOCRIT. 38.7 % (42.0-52.0); HEMOGLOBIN. 13.1 g/dL (14.0-18.0); LYMPHOCYTES % 28.5 % (20.0-50.0); MEAN CORPUSCULAR HEMOGLOBIN 30.4 pg (28.0-32.0); MEAN CORPUSCULAR VOLUME 89.7 fL (80.0-94.0); MEAN PLATELET VOLUME 9.8 fl (7.4-10.4); MONOCYTES % 13.5 % (2.0-8.0); NEUTROPHILS % 55.5 % (40.0-76.0); PLATELET 149 x1000/uL (130-400); RED BLOOD CELL COUNT 4.31 mill/uL (4.7-6.1); RED CELL DISTRIBUTION WIDTH 14.6 % (11.6-14.6)
[2018-07-04 07:17] LABS: CHLORIDE 106 mEq/L (98-107)
[2018-07-04 07:30] LABS: LDL CHOLESTEROL 172 mg/dL (5-100)
[2018-07-04 07:34] LABS: HDL CHOLESTEROL 37 mg/dL (40-59)
[2018-07-04] MEDS: ASPIRIN 81MG TABLET PO SCH (08:05)
[2018-07-04] MEDS: FUROSEMIDE 40MG TABLET PO SCH (08:05)
[2018-07-04] MEDS: CLOPIDOGREL 75MG TABLET PO SCH (08:05)
[2018-07-04] MEDS: ENOXAPARIN 30MG/0.3ML SYR SUBCUT SCH ×2 (08:08→21:18)
[2018-07-04] MEDS: ENTRESTO PO SCH ×2 (09:00→21:08)
[2018-07-04] MEDS: CARVEDILOL 12.5MG TABLET PO SCH (09:00)
[2018-07-04] MEDS: ATORVASTATIN CALCIUM 40MG TABLET PO SCH (21:07)
[2018-07-05] VITALS (8 sets, daily range): BP systolic 96–121; BP diastolic 50–86
[2018-07-05 06:39] LABS: CHLORIDE 105 mEq/L (98-107)
[2018-07-05 06:40] LABS: HEMATOCRIT. 41.1 % (42.0-52.0); HEMOGLOBIN. 13.9 g/dL (14.0-18.0); MEAN CORPUSCULAR HEMOGLOBIN 30.2 pg (28.0-32.0); MEAN CORPUSCULAR VOLUME 89.4 fL (80.0-94.0); MEAN PLATELET VOLUME 9.7 fl (7.4-10.4); PLATELET 173 x1000/uL (130-400); RED CELL DISTRIBUTION WIDTH 14.4 % (11.6-14.6)
[2018-07-05] MEDS ORDERED: CARVEDILOL 6.25 MG TABLET PO SCH (09:00)
[2018-07-05] MEDS: FUROSEMIDE 40MG TABLET PO SCH (09:29)
[2018-07-05] MEDS: CLOPIDOGREL 75MG TABLET PO SCH (09:29)
[2018-07-05] MEDS: ENOXAPARIN 30MG/0.3ML SYR SUBCUT SCH (09:29)
[2018-07-05] MEDS: ASPIRIN 81MG TABLET PO SCH (09:30)
[2018-07-05] MEDS: ENTRESTO PO SCH (09:30)
[2018-07-05 16:13] LABS: PLATELET ESTIMATE NORMAL
== END 2018-07-05 15:00 | disposition home or self-care (01) | DRG 314 ==
LOC: ER 14:25 → 5EST 15:31 → EDBEDREQSVC 15:33 → EDBEDREQ 15:33 → ENRESERV 15:59
PROVIDERS: ADMIT Internal Medicine; ATTEND Internal Medicine
PROC: 4B02XTZ Measurement of Cardiac Defibrillator, External Approach (ICD-10-PCS; principal; 2018-07-02)
PROC: 5A09357 Assistance with Respiratory Ventilation, Less than 24 Consecutive Hours, Continuous Positive Airway Pressure (ICD-10-PCS; 2018-07-02)
PROC: 5A09357 Assistance with Respiratory Ventilation, Less than 24 Consecutive Hours, Continuous Positive Airway Pressure (ICD-10-PCS; 2018-07-03)
DX: T82.119A Breakdown (mechanical) of unspecified cardiac electronic device, initial encounter (principal); I50.23 Acute on chronic systolic (congestive) heart failure; I47.1 Supraventricular tachycardia; Y71.2 Prosthetic and other implants, materials and accessory cardiovascular devices associated with adverse incidents; I11.0 Hypertensive heart disease with heart failure; I25.5 Ischemic cardiomyopathy; I48.0 Paroxysmal atrial fibrillation; E66.9 Obesity, unspecified; E78.5 Hyperlipidemia, unspecified; I25.10 Atherosclerotic heart disease of native coronary artery without angina pectoris; I44.7 Left bundle-branch block, unspecified; J44.9 Chronic obstructive pulmonary disease, unspecified; I49.9 Cardiac arrhythmia, unspecified; Y83.8 Other surgical procedures as the cause of abnormal reaction of the patient, or of later complication, without mention of misadventure at the time of the procedure; Y92.89 Other specified places as the place of occurrence of the external cause; Z79.899 Other long term (current) drug therapy; Z82.49 Family history of ischemic heart disease and other diseases of the circulatory system; Z87.891 Personal history of nicotine dependence; Z95.1 Presence of aortocoronary bypass graft; Z95.5 Presence of coronary angioplasty implant and graft; Z95.810 Presence of automatic (implantable) cardiac defibrillator
CPT/HCPCS: 36415; 36600; 71045; 80048; 80061; 82375; 82805; 83605; 83735; 83880; 84443; 84484; 93005; 93970; 94640; 94660; 96374; 99291; J1650; J1940; J7620

== ENCOUNTER → 2019-10-09 | Outpatient (CLI) | payer MEDICARE, MEDICAID ==
[~2019-10-09] MED LIST changes: -ALBU18HF2 IH; -ALBU6.7H INH; -AMI2 PO; -ASPI-1159 PO; +ATOR-2 MT; -ATOR20TA65 PO; -BENZ-16 PO; -CLOP75TA16 PO; -COR12 PO; +EVOL420W2 SQ; +IPRA3AMP9 HHN; -POTA20TA82 PO; -S350 PO; +SACU1TAB4 MT; +TIOT4MIS3 IH
== END | disposition home or self-care (01) ==
LOC: LAB 10:58
PROVIDERS: ATTEND Specialist
DX: R05 Cough (principal); Z20.828 Contact with and (suspected) exposure to other viral communicable diseases
CPT/HCPCS: C9803; U0003

== ENCOUNTER → 2019-10-30 | Outpatient (CLI) | payer MEDICARE, MEDICAID ==
[~2019-10-30] MED LIST changes: +APIX2.5T PO; +ASPI-1497 PO; +COR6 MT; -EVOL420W2 SQ; +METO2.5T14 PO; +MONT10TA26 MT; +POTA8TAB4 PO; +[UNRECOGNIZED DRUG - OTHER] PO
== END | disposition home or self-care (01) ==
LOC: LAB 10:30
PROVIDERS: ATTEND Specialist
DX: R05 Cough (principal); Z20.828 Contact with and (suspected) exposure to other viral communicable diseases
CPT/HCPCS: 87426

== ENCOUNTER 2019-11-01 06:35 | Day surgery (SDC) | payer MEDICARE, MEDICAID ==
[~2019-11-01] VITALS: Ht 175.3 cm; Wt 107.0 kg
[2019-11-01] MEDS ORDERED: FENTANYL CITRATE/PF 50MCG/ML 2ML VIAL ONE (07:39)
[2019-11-01] MEDS ORDERED: MIDAZOLAM HCL 2 MG/2 ML VIAL ONE ×2 (07:40→09:06)
[2019-11-01] MEDS ORDERED: LIDOCAINE HCL 2% JELLY 5ML ONE (07:42)
[2019-11-01] MEDS ORDERED: TETRACAINE/BENZOCAINE/BUTAMBEN 20 GM SPRAY MM ONE (07:43)
[2019-11-01] MEDS ORDERED: ATROPINE SULFATE 1MG/10ML SYR IV PRN (09:30)
[2019-11-01] MEDS ORDERED: ACETAMINOPHEN 325MG TABLET PO PRN (09:30)
[2019-11-01] MEDS ORDERED: ONDANSETRON HCL 4MG/2ML INJ IV PRN (09:30)
== END 2019-11-01 15:00 | disposition home or self-care (01) ==
LOC: CARD 06:35
PROVIDERS: ATTEND Specialist
DX: I48.20 Chronic atrial fibrillation, unspecified (principal); I42.0 Dilated cardiomyopathy; I34.0 Nonrheumatic mitral (valve) insufficiency; I11.0 Hypertensive heart disease with heart failure; I50.22 Chronic systolic (congestive) heart failure; I25.10 Atherosclerotic heart disease of native coronary artery without angina pectoris; E78.5 Hyperlipidemia, unspecified; E66.9 Obesity, unspecified; I25.2 Old myocardial infarction; I27.20 Pulmonary hypertension, unspecified; J44.9 Chronic obstructive pulmonary disease, unspecified; Z79.01 Long term (current) use of anticoagulants; Z79.82 Long term (current) use of aspirin; Z79.899 Other long term (current) drug therapy; Z82.49 Family history of ischemic heart disease and other diseases of the circulatory system; Z95.5 Presence of coronary angioplasty implant and graft; Z87.891 Personal history of nicotine dependence; Z95.810 Presence of automatic (implantable) cardiac defibrillator; Z95.1 Presence of aortocoronary bypass graft
CPT/HCPCS: 93005; 93312; 93799; J2250; J3010; 92961